=== PATIENT | female | born 1975 | race Hispanic/Latino ===

== ENCOUNTER 2017-12-25 01:42 | Emergency (ER) | payer MEDICAID ==
[2017-12-25 01:43] VITALS: BMI 23.8
[2017-12-25 01:48] VITALS: BP 127/75; PULSE 97; RESP 22; TEMP 98; O2SAT 97
--- NOTE | 2017-12-25 02:08 | C.PDOC ---
History Of Present Illness Patient is a 42 y/o female who presents to the ED requesting a place to stay. Patient was seen today at [facility] and was discharged; patient denies any SI or HI. Patient initially refused to be examined in ED, but then requested time to make up her mind. Patient eloped before examination. Time Seen by Provider: 12/25/17 02:07 Chief Complaint (Nursing): Medical Clearance History Per: Patient History/Exam Limitations: no limitations Onset/Duration Of Symptoms: Hrs Current Symptoms Are (Timing): Still Present Reports Recently: Seen In ED ([facility]) Recent travel outside of the [place]: No Past Medical History Reviewed: Historical Data, Nursing Documentation, Vital Signs Vital Signs: Last Vital Signs Temp 98 F 12/25/17 01:46 Pulse 97 H 12/25/17 01:46 Resp 22 12/25/17 01:46 BP 127/75 12/25/17 01:46 Pulse Ox 97 12/25/17 02:46 - Medical History PMH: Bipolar Disorder, Hypercholesterolemia, Paranoia, Schizophrenia Denies: Depression, Diabetes, Hepatitis, HIV, HTN, Chronic Kidney Disease, Seizures, Sexually Transmitted Disease Surgical History: No Surg Hx - [facility] Procedures APPLICATION OF SPLINT (05/29/03) CERVICAL LES DESTRUC NEC (01/25/02) D & C NEC (12/09/02) EPISIOTOMY (11/27/98) MONITORING NOS (11/27/98) INJECT/INFUSE NEC (10/29/13) LAPAROSCOPY (12/09/02) LOCAL VULVAR EXCIS NEC (03/31/02) NEBULIZER THERAPY (10/24/06) PSYCHIA INTERV/EVAL NEC (12/24/14) Family History: States: No Known Family Hx - Social History Hx Tobacco Use: Yes Hx Alcohol Use: No Hx Substance Use: No - Immunization History Hx Tetanus Toxoid Vaccination: No (unknown) Hx Influenza Vaccination: No Hx Pneumococcal Vaccination: No Review Of Systems Psych: Negative for: Suicidal ideation, Other (negative HI) Physical Exam - Physical Exam Ear(s): Left: Loss Of TM Landmarks Additional Physical Exam Comments: Physical exam not conducted due to patient elopement. ED Course And Treatment O2 Sat by Pulse Oximetry: 97 Disposition Counseled Patient/Family Regarding: Studies Performed, Diagnosis - Disposition Disposition: ELOPEMENT - ER ONLY Disposition Time: :08 Condition: GOOD Forms: [facility] (Greenlandic), General Discharge Instructions - Clinical Impression Clinical Impression: Medical assessment - Scribe Statement The provider has reviewed the documentation as recorded by the Scribe Venita Daley All medical record entries made by the Scribe were at my direction and personally dictated by me. I have reviewed the chart and agree that the record accurately reflects my personal performance of the history, physical exam, medical decision making, and the department course for this patient. I have also personally directed, reviewed, and agree with the discharge instructions and disposition.
== END 2017-12-25 02:35 | disposition left against medical advice (07) ==
LOC: C.ER 01:42
DX: Z04.8 Encounter for examination and observation for other specified reasons (principal)

== ENCOUNTER 2018-03-21 17:06 | Emergency (ER) | payer MEDICAID ==
[2018-03-21 17:06] VITALS: BMI 23.8
--- NOTE | 2018-03-21 17:19 | C.PDOC ---
History Of Present Illness 42 year old female undomiciled currently staying in a detention is brought to the ED by EMS c/o pain to the left heel. Patient has a callus to the heel that split and formed a fissure. Patient reports she picked her skin from the heel and now a bulla formed at the site. Patient reports she noticed the site was getting swollen and becoming painful. Patient denies fever, chills, nausea, vomit, headache. Time Seen by Provider: 03/21/18 17:10 Chief Complaint (Nursing): Lower Extremity Problem/Injury History Per: Patient History/Exam Limitations: no limitations Onset/Duration Of Symptoms: Days Current Symptoms Are (Timing): Still Present Recent travel outside of the [place]: No Additional History Per: Patient - Ankle/Foot Description Of Injury: Other Currently Unable To: Bend Or Move Past Medical History Reviewed: Historical Data, Nursing Documentation, Vital Signs Vital Signs: Last Vital Signs Temp 98 F 03/21/18 17:12 Pulse 78 03/21/18 17:12 Resp 18 03/21/18 17:12 BP 132/69 03/21/18 17:12 Pulse Ox 98 03/21/18 17:28 - Medical History PMH: Bipolar Disorder, Hypercholesterolemia, Paranoia, Schizophrenia Denies: Depression, Diabetes, Hepatitis, HIV, HTN, Chronic Kidney Disease, Seizures, Sexually Transmitted Disease Surgical History: No Surg Hx - [facility] Procedures APPLICATION OF SPLINT (05/29/03) CERVICAL LES DESTRUC NEC (01/25/02) D & C NEC (12/09/02) EPISIOTOMY (11/27/98) MONITORING NOS (11/27/98) INJECT/INFUSE NEC (10/29/13) LAPAROSCOPY (12/09/02) LOCAL VULVAR EXCIS NEC (03/31/02) NEBULIZER THERAPY (10/24/06) PSYCHIA INTERV/EVAL NEC (12/24/14) Family History: States: Unknown Family Hx - Social History Hx Tobacco Use: Yes Hx Alcohol Use: No Hx Substance Use: No - Immunization History Hx Tetanus Toxoid Vaccination: No (unknown) Hx Influenza Vaccination: No Hx Pneumococcal Vaccination: No Review Of Systems Constitutional: Negative for: Fever, Chills Cardiovascular: Negative for: Chest Pain Respiratory: Negative for: Shortness of Breath Gastrointestinal: Negative for: Nausea, Vomiting, Abdominal Pain Musculoskeletal: Positive for: Foot Pain Skin: Positive for: Other (fissure, bulla) Neurological: Negative for: Weakness, Numbness Physical Exam - Physical Exam Appears: Non-toxic, No Acute Distress, Other (slightly disheveled) Skin: Normal Color, Warm, Dry Head: Atraumatic, Normacephalic Eye(s): bilateral: Normal Inspection Oral Mucosa: Moist Neck: Normal ROM, Supple Extremity: Normal ROM, No Tenderness, Capillary Refill (< 2 seconds), No Swelling, Other (left foot heel callused, deep fissure noted with erythema and wamrth to the site) Extremity: Bilateral: Atraumatic Pulses: Left Dorsalis Pedis: Normal, Right Dorsalis Pedis: Normal Neurological/Psych: Oriented x3, Normal Speech Gait: Steady ED Course And Treatment O2 Sat by Pulse Oximetry: 98 (ON RA) Pulse Ox Interpretation: Normal Medical Decision Making Medical Decision Making: Impression: deep skin fissure on left heel, treat for cellulitis Plan: * Bactrim 2 ea TOP * Keflex 500 mg PO * Motrin 600 mg PO Patient was advised follow up with her [facility]fer [facility] Disposition Counseled Patient/Family Regarding: Diagnosis, Need For Followup, Rx Given - Disposition Referrals: [facility] [Outside] Disposition: HOME/ ROUTINE Disposition Time: 17:23 Condition: STABLE Additional Instructions: Keep your feet clean. You can soak in warm Epson Salts. Take antibiotics as indicated. Keep the area around the heel lubricated with Bacitracin, alternating with Tinactin cream. Follow up with your [facility] or out Podiatry clinic. Prescriptions: Cephalexin [Keflex] 500 mg PO TID #40 capsule Ibuprofen [Motrin] 600 mg PO TID #15 tab Tolnaftate [Tinactin] 1 appl TP TID #1 tube Forms: [facility] (Argentine), General Discharge Instructions - POA Present On Arrival: None - Clinical Impression Clinical Impression: Fissure in skin, Cellulitis of foot - Scribe Statement The provider has reviewed the documentation as recorded by the Scribe Robert Ann All medical record entries made by the Scribe were at my direction and personally dictated by me. I have reviewed the chart and agree that the record accurately reflects my personal performance of the history, physical exam, medical decision making, and the department course for this patient. I have also personally directed, reviewed, and agree with the discharge instructions and disposition.
[2018-03-21] MEDS ORDERED: Bacitracin 500 Units/gm Oint Foilpak UD TOP ONE (17:20)
[2018-03-21] MEDS ORDERED: Bacitracin 500 Units/gm Oint Foilpak UD ONE (17:21)
[2018-03-21 17:23] VITALS: RESP 18; TEMP 98; O2SAT 98
[2018-03-21 17:38] VITALS: BP 136/74; PULSE 87
== END 2018-03-21 17:38 | disposition home or self-care (01) ==
LOC: C.ER 17:06
DX: L03.116 Cellulitis of left lower limb (principal); R23.4 Changes in skin texture